=== PATIENT | female | born 1940 | race Caucasian/White ===

== ENCOUNTER 2017-10-28 11:15 | Outpatient (CLI) | payer MEDICARE, OTHER, SELFPAY ==
--- NOTE | 2017-10-28 10:25 | DI.REPORT_ITS ---
SYMPTOM/DIAGNOSIS: PAIN LEFT KNEE: Two views. No priors. There is marked narrowing of the medial femoral tibial joint space and moderate narrowing of the patellofemoral joint. Periarticular spurring is seen in all three joint compartments. No fracture or dislocation is identified. No radiopaque foreign bodies are seen in the soft tissues. IMPRESSION: Marked osteoarthritis of the left knee.
== END 2017-10-28 11:16 ==
PROVIDERS: PCP Internal Medicine; Visit Provider Orthopaedic Surgery
DX: M25.562 Pain in left knee (principal); M17.12 Unilateral primary osteoarthritis, left knee
CPT/HCPCS: 73560; 20610; 99214; J1040